=== PATIENT | female | born 1980 ===

== ENCOUNTER 2019-03-13 18:35 | Inpatient (IN) | payer MEDICAID ==
[2019-03-13 18:38] VITALS: BMI 24.5
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
[2019-03-13] MEDS ORDERED: Iohexol 350 MG/100 ML VIAL ONE (18:47)
[2019-03-13 18:57] LABS: BASO # 0.03 K/mm3 (0.0-2.0); BASO % 0.2 % (0.0-3.0); EOS % 0.1 % (1.5-5.0); HEMOGLOBIN 14.2 g/dL (12.0-16.0); LYMPH # 2.2 (1.2-3.4); LYMPH % 17.9 % (22.0-35.0); MEAN CELL VOLUME 84.7 fl (80.0-105.0); MEAN CORPUSCULAR HEMOGLOBIN 28.6 pg (25.0-35.0); MEAN CORPUSCULAR HGB CONC 33.8 g/dl (31.0-37.0); MEAN PLATELET VOLUME 11.5 fl (7.0-11.0); MONO # 0.5 (0.1-0.6); MONO % 3.8 % (1.0-6.0); RBC 4.96 10^6/uL (3.5-6.1); RED CELL DISTRIBUTION WIDTH 12.5 % (11.5-14.5); WHITE BLOOD COUNT 12.4 10^3/uL (4.5-11.0)
[2019-03-13 19:06] LABS: ALB/GLOB RATIO 1.3 (1.1-1.8); ALBUMIN 4.9 g/dL (3.0-4.8); ALT/SGPT 18 U/L (7-56); AST/SGOT 36 U/L (14-36); BLOOD UREA NITROGEN 11 mg/dL (7-21); CALCIUM 9.9 mg/dL (8.4-10.5); GFR NON-AFRICAN AMERICAN > 60; HDL CHOLESTEROL 55 mg/dL (29-60); INR 1.04; PARTIAL THROMBOPLASTIN TIME 22.8 Seconds (26.9-38.3); PROTHROMBIN TIME 11.5 SECONDS (9.4-12.5)
[2019-03-13 19:17] LABS: LDL CHOLESTEROL 152 mg/dL (0-129)
[2019-03-13 19:20] LABS: TROPONIN I < 0.01 ng/mL
[2019-03-13] MEDS ORDERED: Magnesium Sulfate 2 GM in Sodium Chloride 0.9% 100 ML IVPB ONE (19:33)
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
[2019-03-13] MEDS ORDERED: Magnesium Sulfate 2 GM in 50 ml Water IVPB ONE (19:45)
[2019-03-13] MEDS: Sodium Chloride 0.9% 1,000 ML IV SCH (20:06)
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
[2019-03-13 22:42] LABS: FREE T4 1.01 ng/dL (0.78-2.19)
[2019-03-13 22:54] LABS: INR 1.04; PROTHROMBIN TIME 11.5 SECONDS (9.4-12.5)
[2019-03-14] MEDS: Sodium Chloride 0.9% 1,000 ML IV SCH (04:00)
[2019-03-14 04:30] VITALS: RESP 20
[2019-03-14 06:20] VITALS: O2SAT 97
[2019-03-14 06:26] LABS: HEMOGLOBIN 12.8 g/dL (12.0-16.0); LYMPH # 0.7 (1.2-3.4); MEAN CELL VOLUME 84.4 fl (80.0-105.0); MEAN CORPUSCULAR HEMOGLOBIN 28.2 pg (25.0-35.0); MEAN CORPUSCULAR HGB CONC 33.4 g/dl (31.0-37.0); MEAN PLATELET VOLUME 11.4 fl (7.0-11.0); MONO % 0.3 % (1.0-6.0); PLATELET COUNT 240 10^3/uL (120.0-450.0); RBC 4.54 10^6/uL (3.5-6.1); RED CELL DISTRIBUTION WIDTH 12.4 % (11.5-14.5); WHITE BLOOD COUNT 10.6 10^3/uL (4.5-11.0)
[2019-03-14 06:54] LABS: TROPONIN I < 0.01 ng/mL
[2019-03-14 06:56] LABS: BAND 1 % (0-2); LYMPHOCYTE 5 % (22.0-35.0); NEUTROPHIL 94 % (50.0-70.0); PLATELET ESTIMATE NORMAL (NORMAL)
[2019-03-14 07:11] LABS: ALB/GLOB RATIO 1.2 (1.1-1.8); ALBUMIN 3.9 g/dL (3.0-4.8); ALT/SGPT 15 U/L (7-56); AST/SGOT 25 U/L (14-36); BLOOD UREA NITROGEN 14 mg/dL (7-21); CALCIUM 9.1 mg/dL (8.4-10.5); GFR NON-AFRICAN AMERICAN > 60
--- NOTE | 2019-03-14 08:01 | RAD ---
Date of service: 03/13/2019 HISTORY: Code Stroke COMPARISON: 05/09/2014 TECHNIQUE: 1 view obtained. FINDINGS: LUNGS: No active pulmonary disease. PLEURA: No significant pleural effusion identified, no pneumothorax apparent. CARDIOVASCULAR: No aortic atherosclerotic calcification present. Normal cardiac size. No pulmonary vascular congestion. OSSEOUS STRUCTURES: No significant abnormalities. VISUALIZED UPPER ABDOMEN: Normal. OTHER FINDINGS: None. IMPRESSION: No active disease.
--- NOTE | 2019-03-14 08:17 | CT ---
Date of service: 03/13/2019 PROCEDURE: CT HEAD WITHOUT CONTRAST. HISTORY: Code Stroke COMPARISON: 05/05/2013. TECHNIQUE: Axial computed tomography images were obtained through the head/brain without intravenous contrast. Radiation dose: Total exam DLP = 876.59 mGy-cm. This CT exam was performed using one or more of the following dose reduction techniques: Automated exposure control, adjustment of the mA and/or kV according to patient size, and/or use of iterative reconstruction technique. FINDINGS: HEMORRHAGE: No intracranial hemorrhage. BRAIN: Saldivar-white matter differentiation is preserved. There is no mass, mass effect or abnormal extra-axial fluid collection. There is no territorial infarction. The midline sagittal structures are normal. VENTRICLES: The ventricles are normal in size, shape and configuration. CALVARIUM: There is no calvarial fracture or extracranial soft tissue swelling. PARANASAL SINUSES: Predominantly clear. MASTOID AIR CELLS: Predominantly clear. OTHER FINDINGS: None. IMPRESSION: No acute intracranial abnormality. If there is a persistent focal neurologic deficit and an ongoing clinical concern for acute infarction, an MRI of the brain without intravenous contrast would be a more sensitive modality for evaluation of hyperacute/acute ischemic infarction. A preliminary report was provided by [employer].
--- NOTE | 2019-03-14 08:40 | CT ---
Date of service: 03/13/2019 PROCEDURE: CTA HEAD AND NECK WITH CONTRAST HISTORY: left sided weakness COMPARISON: None available. TECHNIQUE: Initial noncontrast head CT was performed. Subsequently, CT angiogram of the head and neck were performed after the intravenous administration of 80 mL of Omnipaque 350. Contiguous 1.5mm thick images were obtained in the axial plane of the neck. 2-D coronal and sagittal MPR images were obtained. Imaging postprocessing was performed with 3-D images also obtained. A delayed contrast head CT was also obtained. This CT exam was performed using one or more of the following dose reduction techniques: Automated exposure control, adjustment of the mA and/or kV according to patient size, and/or use of iterative reconstruction technique. Contrast dose: 100 mL Omnipaque 350 Radiation dose: Total exam DLP = 442.89 mGy-cm. FINDINGS: HEAD: Right: The intracranial internal carotid artery, and anterior and middle cerebral arteries are widely patent. Left: The intracranial internal carotid artery, and anterior and middle cerebral arteries are widely patent. Posterior circulation: The visualized intracranial vertebral arteries, basilar artery and posterior cerebral arteries are widely patent. There is no endoluminal filling defect to suggest thrombus. There is no intracranial saccular aneurysm. NECK: There is a three vessel aortic arch. There is no stenosis at the origins of the great vessels at the level of the aortic arch. No atherosclerotic calcification or mural plaque present. Right Carotid: On the right, the common carotid, internal carotid and external carotid arteries are widely patent. There is no hemodynamically significant stenosis in the internal carotid artery by NASCET criteria. Left Carotid: On the left, the common carotid, internal carotid and external carotid arteries are widely patent. There is no hemodynamically significant stenosis in the internal carotid artery by NASCET criteria. The vertebral arteries are widely patent. The left vertebral artery is hypoplastic, an anatomic variant. The visualized soft tissues of the neck are normal. The visualized brain and cervical spine are within normal limits. The lung apices are clear. IMPRESSION: 1. No evidence of endoluminal thrombus,occlusion or definite significant stenosis in the intracranial arteries. 2. No evidence of hemodynamically significant stenosis in the internal carotid arteries. 3. Patent bilateral vertebral arteries. A preliminary report was provided by [employer].
[2019-03-14] MEDS ORDERED: Enoxaparin 40 mg Syringe SC SCH (10:00)
--- NOTE | 2019-03-14 10:21 | CARD ---
APPROVED REPORT Date of service: 03/13/2019 EKG Measurement Heart [id number] <Conclusion> Sinus tachycardia Otherwise normal ECG
[2019-03-14 12:34] LABS: FOLATE > 20.0 ng/mL
--- NOTE | 2019-03-14 13:13 | CP.PCM.PN ---
Subjective - Date & Time of Evaluation Date of Evaluation: 03/14/19 Time of Evaluation: 13:12 - Subjective Subjective: Neurology Progress Note: Ms. Sydnee Carvalho was seen and examined today at bedside after discussion of the results of her studies. She was improved compared with yesterday. Objective - Vital Signs/Intake and Output Vital Signs (last 24 hours): Temp Pulse Resp BP Pulse Ox 98.8 F 97 H 20 110/73 97 03/14/19 12:00 03/14/19 12:00 03/14/19 12:00 03/14/19 12:00 03/14/19 06:00 Intake and Output: 03/14/19 03/14/19 06:59 18:59 Intake Total 1140 Balance 1140 - Medications Medications: Current Medications Aspirin (Ecotrin) 81 mg PO 0800 [facility]O Enoxaparin Sodium (Lovenox) 40 mg SC DAILY [facility]; Protocol Last Admin: 03/14/19 09:28 Dose: 40 mg Famotidine (Pepcid) 20 mg IVP DAILY [facility] Last Admin: 03/14/19 09:28 Dose: 20 mg Sodium Chloride (Sodium Chloride 0.9%) 1,000 mls @ 100 mls/hr IV .Q10H CHRISTIANO Last Admin: 03/14/19 04:00 Dose: 100 mls/hr - Labs Labs: 03/14/19 06:00 03/14/19 06:00 PT 11.5 SECONDS (9.4-12.5) 03/13/19 22:41 INR 1.04 03/13/19 22:41 APTT 22.8 Seconds (26.9-38.3) L 03/13/19 18:53 - Constitutional Appears: Well - Head Exam Head Exam: ATRAUMATIC, NORMAL INSPECTION, NORMOCEPHALIC - Eye Exam Eye Exam: EOMI, Normal appearance, PERRL Pupil Exam: NORMAL ACCOMODATION, PERRL - ENT Exam ENT Exam: Mucous Membranes Moist, Normal Exam - Neck Exam Neck Exam: Full ROM, Normal Inspection. absent: Lymphadenopathy - Respiratory Exam Respiratory Exam: Clear to Ausculation Bilateral, NORMAL BREATHING PATTERN - Cardiovascular Exam Cardiovascular Exam: REGULAR RHYTHM, +S1, +S2. absent: Murmur - GI/Abdominal Exam GI & Abdominal Exam: Soft, Normal Bowel Sounds. absent: Tenderness - Extremities Exam Extremities Exam: Full ROM, Normal Capillary Refill, Normal Inspection. absent: Joint Swelling, Pedal Edema - Back Exam Back Exam: NORMAL INSPECTION - Neurological Exam Neurological Exam: Alert, Awake, CN II-XII Intact, Normal Gait, Oriented x3 Neuro motor strength exam: Left Upper Extremity: 5, Right Upper Extremity: 5, Left Lower Extremity: 5, Right Lower Extremity: 5 Additional comments: NIHSS is 0 - Psychiatric Exam Psychiatric exam: Normal Affect, Normal Mood - Skin Skin Exam: Dry, Intact, Normal Color, Warm
[2019-03-14] MEDS ORDERED: Cholecalciferol 1,000 INTLU TAB PO SCH (14:00)
--- NOTE | 2019-03-14 14:44 | CP.PCM.PCO ---
Physician Communication Note - Physician Communication Note Physician Communication Note: Swallow eval done at bedside with Dr Mccormack. Passed, started on diet.
--- NOTE | 2019-03-14 16:34 | MRI ---
Date of service: 03/14/2019 PROCEDURE: MRI BRAIN WITHOUT CONTRAST HISTORY: Headache and hemiplegia COMPARISON: CT head without contrast from 03/13/2019. TECHNIQUE: Multiplanar, multisequence MR images of the brain were obtained without intravenous contrast enhancement. FINDINGS: HEMORRHAGE: None DWI: No evidence of an acute or early subacute infarction. BRAIN PARENCHYMA: Saldivar-white matter differentiation is preserved. There is no mass, mass effect or abnormal extra-axial fluid collection. There is no territorial infarction. There is a 7 x 10 mm T1 and T2 hyperintense lesion with layering T2 hypointense and T1 hyperintense signal in the midline pituitary gland. Posterior pituitary bright signal is preserved. VENTRICLES: The ventricles are normal in size, shape and configuration. CRANIUM: There is normal bone marrow signal pattern. ORBITS: Grossly unremarkable. PARANASAL SINUSES/MASTOIDS: Clear VASCULAR SYSTEM: There are normal signal voids in the larger intracranial arteries. OTHER FINDINGS: None. IMPRESSION: 1. No acute intracranial abnormality. 2. 7 x 10 mm lesion in the midline pituitary gland could represent a Rathke's cleft cyst or hemorrhage in pituitary microadenoma. Dedicated MRI the brain with pituitary protocol without and with intravenous contrast would be helpful for further evaluation.
--- NOTE | 2019-03-14 16:36 | MRI ---
Date of service: 03/14/2019 PROCEDURE: Magnetic Resonance Angiography Brain HISTORY: headache and hemiplegia COMPARISON: None available. TECHNIQUE: 3D time of flight MR angiography of the intracranial arteries was performed. Rotating maximum intensity projection images were generated. FINDINGS: INTERNAL CAROTID ARTERIES: Normal flow related signal. The skull base, petrous, cavernous and supraclinoid segments are bilaterally widely patient. ANTERIOR CEREBRAL ARTERIES: Normal flow related signal. A1 and A2 segments are widely patent. Smaller distal branches unremarkable, as visualized. MIDDLE CEREBRAL ARTERIES: Normal flow related signal. M1 and M2 segments are widely patent. Perisylvian branches grossly symmetric. POSTERIOR CIRCULATION: Basilar Artery: Normal flow related signal. Normal in caliber and widely patent. Distal Vertebral Arteries: Normal flow related signal. Widely patent. Posterior Cerebral Arteries: Normal flow related signal. Widely patent. Posterior Inferior Cerebellar Arteries: Normal flow related signal. Widely patent. ANEURYSM/ VASCULAR MALFORMATIONS: None. OTHER FINDINGS: None. IMPRESSION: Normal noncontrast MR angiography of the brain.
[2019-03-14 17:27] VITALS: BP 111/71; TEMP 98.3
[2019-03-14 18:08] VITALS: PULSE 106
--- NOTE | 2019-03-14 18:26 | CARD ---
APPROVED REPORT Date of service: 03/14/2019 EKG Measurement Heart [id number] <Conclusion> Normal sinus rhythm Normal ECG
--- NOTE | 2019-03-14 19:34 | CARD ---
APPROVED REPORT Date of service: 03/14/2019 EXAM: Two-dimensional and M-mode echocardiogram with Doppler and color Doppler. INDICATION R/O PFO/BUBBLE STUDY 2D DIMENSIONS Left Atrium (2D)3.9 (1.6-4.0cm)IVSd0.8 (0.7-1.1cm) LVDd4.0 (3.9-5.9cm)PWd0.8 (0.7-1.1cm) LVDs2.6 (2.5-4.0cm)FS (%) 36.1 % LVEF (%)66.4 (>50%) M-Mode DIMENSIONS Aortic Root2.70 (2.2-3.7cm)Aortic Cusp Exc.1.70 (1.5-2.0cm) Aortic Valve AoV Peak Pawkodfo127.0cm/Kimberley Peak GR.10mmHg Mitral Valve MV E Toobmfua66.2cm/sMV A Dhhbeibd74.5cm/sE/A ratio1.1 TDI E/Lateral E'0.0E/Medial E'0.0 Pulmonary Valve PV Peak Wrhshyns46.5cm/sPV Peak Grad.3mmHg Tricuspid Valve TR Peak [id number]/sRAP [id number] Peak Gr.22mmHg [id number] LEFT VENTRICLE The left ventricle is normal size. There is normal left ventricular wall thickness. The left ventricular function is normal. The left ventricular ejection fraction is within the normal range. There is normal LV segmental wall motion. The left ventricular diastolic function is normal. RIGHT VENTRICLE The right ventricle is normal size. There is normal right ventricular wall thickness. The right ventricular systolic function is normal. ATRIA The left atrium size is normal. The right atrium size is normal. The interatrial septum is intact AORTIC VALVE The aortic valve is normal in structure. No aortic regurgitation is present. There is no aortic valvular stenosis. MITRAL VALVE The mitral valve is normal in structure. Mitral regurgitation is trace. TRICUSPID VALVE The tricuspid valve is normal in structure. There is trace tricuspid regurgitation. PULMONIC VALVE The pulmonary valve is normal in structure. There is no pulmonic valvular regurgitation. GREAT VESSELS The aortic root is normal in size. The IVC is normal in size and collapses >50% with inspiration. <Conclusion> The left ventricle is normal size. There is normal left ventricular wall thickness. The left ventricular function is normal. The left ventricular ejection fraction is within the normal range. There is normal LV segmental wall motion. The left ventricular diastolic function is normal. Mitral regurgitation is trace. There is trace tricuspid regurgitation. The interatrial septum is intact
--- NOTE | 2019-03-15 07:00 | CP.PCM.DIS ---
<Antwon Gillette - Last Filed: 03/15/19 07:00> Provider - Provider Date of Admission: 03/13/19 19:31 Attending physician: Latrice Mccormack MD Primary care physician: Cherelle Gordon DO Consults: 03/13/19 18:40 Stroke Team Consult Stat Comment: left sided def Consulting Provider: Neurohospitalist Consulting Physician: NEUROHOSP Neurohospitalist for Consult: Alberto Shaffer Neurohospitalist for Consult: Kathy De Dios Reason for Consult: r/o cva 03/13/19 23:46 Case Management Referral Routine Comment: Physician Instructions: Reason For Exam: ?cva Reason for Referral: Visual Display Associate Eval Time Spent in preparation of Discharge (in minutes): 40 Diagnosis - Discharge Diagnosis (1) Numbness and tingling in left arm Status: Resolved (2) Dysarthria Status: Resolved (3) Dysphagia Status: Resolved Hospital Course - Lab Results Lab Results: Most Recent Lab Values WBC 10.6 10^3/uL (4.5-11.0) 03/14/19 06:00 RBC 4.54 10^6/uL (3.5-6.1) 03/14/19 06:00 Hgb 12.8 g/dL (12.0-16.0) 03/14/19 06:00 Hct 38.3 % (36.0-48.0) 03/14/19 06:00 MCV 84.4 fl (80.0-105.0) 03/14/19 06:00 MCH 28.2 pg (25.0-35.0) 03/14/19 06:00 MCHC 33.4 g/dl (31.0-37.0) 03/14/19 06:00 RDW 12.4 % (11.5-14.5) 03/14/19 06:00 Plt Count 240 10^3/uL (120.0-450.0) 03/14/19 06:00 MPV 11.4 fl (7.0-11.0) H 03/14/19 06:00 Neut % (Auto) 92.7 % (50.0-68.0) H 03/14/19 06:00 Lymph % (Auto) 7.0 % (22.0-35.0) L 03/14/19 06:00 Mckean % (Auto) 0.3 % (1.0-6.0) L 03/14/19 06:00 Eos % (Auto) 0.0 % (1.5-5.0) L 03/14/19 06:00 Baso % (Auto) 0.0 % (0.0-3.0) 03/14/19 06:00 Lymph # (Auto) 0.7 (1.2-3.4) L 03/14/19 06:00 Mckean # (Auto) 0.0 (0.1-0.6) L 03/14/19 06:00 Eos # (Auto) 0.0 (0.0-0.7) 03/14/19 06:00 Baso # (Auto) 0.00 K/mm3 (0.0-2.0) 03/14/19 06:00 Absolute Neuts (auto) 9.80 (1.4-6.5) H 03/14/19 06:00 Neutrophils % (Manual) 94 % (50.0-70.0) H 03/14/19 06:00 Band Neutrophils % 1 % (0-2) 03/14/19 06:00 Lymphocytes % (Manual) 5 % (22.0-35.0) L 03/14/19 06:00 Monocytes % (Manual) TEST NOT PERFORMED 03/14/19 06:00 Platelet Evaluation Normal (NORMAL) 03/14/19 06:00 PT 11.5 SECONDS (9.4-12.5) 03/13/19 22:41 INR 1.04 03/13/19 22:41 APTT 22.8 Seconds (26.9-38.3) L 03/13/19 18:53 Fibrinogen 272 mg/dl (200-400) 03/13/19 22:41 Sodium 137 mmol/L (132-148) 03/14/19 06:00 Potassium 4.5 mmol/L (3.6-5.0) 03/14/19 06:00 Chloride 109 mmol/L (98-107) H 03/14/19 06:00 Carbon Dioxide 21 mmol/L (21-33) 03/14/19 06:00 Anion Gap 12 (10-20) 03/14/19 06:00 BUN 14 mg/dL (7-21) 03/14/19 06:00 Creatinine 0.6 mg/dl (0.7-1.2) L 03/14/19 06:00 Est GFR ( Amer) > 60 03/14/19 06:00 Est GFR (Non-Af Amer) > 60 03/14/19 06:00 POC Glucose (mg/dL) 146 mg/dL (65-110) H 03/14/19 16:26 Random Glucose 121 mg/dL (70-110) H 03/14/19 06:00 Hemoglobin A1c 5.4 % (4.2-6.5) 03/13/19 18:53 Calcium 9.1 mg/dL (8.4-10.5) 03/14/19 06:00 Phosphorus 4.2 mg/dL (2.5-4.5) 03/14/19 06:00 Magnesium 1.9 mg/dL (1.7-2.2) 03/13/19 18:53 Total Bilirubin 0.5 mg/dL (0.2-1.3) 03/14/19 06:00 AST 25 U/L (14-36) 03/14/19 06:00 ALT 15 U/L (7-56) 03/14/19 06:00 Alkaline Phosphatase 59 U/L (38-126) 03/14/19 06:00 Troponin I < 0.01 ng/mL 03/14/19 06:00 Total Protein 7.2 g/dL (5.8-8.3) 03/14/19 06:00 Albumin 3.9 g/dL (3.0-4.8) 03/14/19 06:00 Globulin 3.3 gm/dL 03/14/19 06:00 Albumin/Globulin Ratio 1.2 (1.1-1.8) 03/14/19 06:00 Triglycerides 211 mg/dL (35-160) H 03/13/19 18:53 Cholesterol 245 mg/dL (130-200) H 03/13/19 18:53 LDL Cholesterol Direct 152 mg/dL (0-129) H 03/13/19 18:53 HDL Cholesterol 55 mg/dL (29-60) 03/13/19 18:53 Vitamin B12 424 pg/mL (239-931) 03/14/19 06:00 25-OH Vitamin D Total 30 ng/mL (30-100) 03/14/19 06:00 Folate > 20.0 ng/mL 03/14/19 06:00 Free T4 1.01 ng/dL (0.78-2.19) 03/13/19 18:53 TSH 3rd Generation 1.05 mIU/mL (0.46-4.68) 03/13/19 18:53 Blood Type B POSITIVE 03/13/19 18:53 Blood Type Confirm B POSITIVE 03/13/19 19:17 Antibody Screen Negative 03/13/19 18:53 BBK History Checked No verified bt 03/13/19 18:53 - Hospital Course Hospital Course: Antwon Gillette DO, PGY-1 Hospitalist Discharge Summary for Dr. Mccormack Prior to admission: Patient is a 38 year old female with PMH of intermittent palpitations (had previously taken atenolol as needed) presented to ED with a complaint of JOHNSON with associated L sided numbness, tingling, dysarthria, and dysphagia that started the morning prior to presentation. She also reported feeling palpitations at the time of onset, for which she took one of her old atenolol prescription pills. She presented to her PMD, Dr. Gordon, who recommend she present to ED for further evaluation. Code stroke was called in ED. Initial head CT was negative for concerning findings. Patient was out of the window of 4.5 hrs, so no tPA was given. Hospitalization course: By our examination the following morning, patient's symptoms had largely resolved. She no longer had dysarthria or dysphagia. Although she failed initial nursing swallow evaluation, she was able to swallow without difficulty on examination, and passed full swallow evaluation by speech language pathologist. She had no residual weakness or dysarthria. Additional w/u was completed with MRA head and neck and MRI brain, both of which were without concerning findings. She was instructed to f/u with neurologist outpatient to get an MRI brain with contrast study as below. She was instructed to f/u with her PMD, Dr. Rodriguez, for echocardiogram results. Discharge plan was discussed with patient in detail. All questions were answered. Patient seen, examined with, and discharge plan discussed with my attending, Dr. Easton Gillette DO IM Resident PGY-1 Discharge Exam - Head Exam Head Exam: ATRAUMATIC, NORMAL INSPECTION, NORMOCEPHALIC Additional comments: Patient seen and examined yesterday morning and then again prior to discharge in the evening. Physical exam findings as below: - Eye Exam Eye Exam: EOMI, PERRL - ENT Exam ENT Exam: Mucous Membranes Moist - Neck Exam Neck exam: Full Rom, Normal Inspection - Respiratory Exam Respiratory Exam: Clear to PA & Lateral, NORMAL BREATHING PATTERN, UNREMARKABLE. absent: Rales, Rhonchi, Wheezes - Cardiovascular Exam Cardiovascular Exam: REGULAR RHYTHM, RRR, +S1, +S2. absent: Diastolic murmur, Gallop, Rubs, Systolic Murmur - GI/Abdominal Exam GI & Abdominal Exam: Normal Bowel Sounds, Soft, Unremarkable. absent: Tenderness - Extremities Exam Extremities exam: full ROM, normal inspection - Back Exam Back exam: NORMAL INSPECTION - Neurological Exam Neurological exam: Alert, Oriented x3 - Psychiatric Exam Psychiatric exam: Normal Affect, Normal Mood - Skin Skin Exam: Dry, Intact, Warm Discharge Plan - Discharge Medications Prescriptions: Aspirin [Ecotrin] 81 mg PO 0800 #30 tabec Cholecalciferol [Vitamin D 1000 IU] 2,000 intlu PO DAILY #30 tab - Follow Up Plan Condition: CRITICAL Disposition: HOME/ ROUTINE Instructions: Stroke, High Blood Pressure in Adults, Risk Factors for Stroke Additional Instructions: Please follow up with your primary medical doctor, Dr. Gordon, within 3-5 days of discharge. Please follow up with the neurologist, Dr. Shaffer, within 1 week of discharge. Please continue to take aspirin 81 mg daily. Please also start taking vitamin D 2000 IU daily. It is available over the coun ter. Obtain MRI brain with contrast outpatient and follow up with your neurologist. Please follow up with your primary care doctor for the echocardiogram results. If you experience new onset numbness with weakness, slurred speech, or other concerning symptoms, please present to nearest emergency department. Referrals: Alberto Shaffer MD [Staff Provider] - Cherelle Gordon DO [Primary Care Provider] - <Latrice Mccormack - Last Filed: 03/15/19 15:04> Provider - Provider Date of Admission: 03/13/19 19:31 Attending physician: Latrice Mccormack MD Primary care physician: Cherelle Gordon DO Consults: 03/13/19 18:40 Stroke Team Consult Stat Comment: left sided def Consulting Provider: Neurohospitalist Consulting Physician: NEUROHOSP Neurohospitalist for Consult: Alberto Shaffer Neurohospitalist for Consult: Kathy De Dios Reason for Consult: r/o cva 03/13/19 23:46 Case Management Referral Routine Comment: Physician Instructions: Reason For Exam: ?cva Reason for Referral: Visual Display Associate [place] Hospital Course - Lab Results Lab Results: Most Recent Lab Values WBC 10.6 10^3/uL (4.5-11.0) 03/14/19 06:00 RBC 4.54 10^6/uL (3.5-6.1) 03/14/19 06:00 Hgb 12.8 g/dL (12.0-16.0) 03/14/19 06:00 Hct 38.3 % (36.0-48.0) 03/14/19 06:00 MCV 84.4 fl (80.0-105.0) 03/14/19 06:00 MCH 28.2 pg (25.0-35.0) 03/14/19 06:00 MCHC 33.4 g/dl (31.0-37.0) 03/14/19 06:00 RDW 12.4 % (11.5-14.5) 03/14/19 06:00 Plt Count 240 10^3/uL (120.0-450.0) 03/14/19 06:00 MPV 11.4 fl (7.0-11.0) H 03/14/19 06:00 Neut % (Auto) 92.7 % (50.0-68.0) H 03/14/19 06:00 Lymph % (Auto) 7.0 % (22.0-35.0) L 03/14/19 06:00 Mckean % (Auto) 0.3 % (1.0-6.0) L 03/14/19 06:00 Eos % (Auto) 0.0 % (1.5-5.0) L 03/14/19 06:00 Baso % (Auto) 0.0 % (0.0-3.0) 03/14/19 06:00 Lymph # (Auto) 0.7 (1.2-3.4) L 03/14/19 06:00 Mckean # (Auto) 0.0 (0.1-0.6) L 03/14/19 06:00 Eos # (Auto) 0.0 (0.0-0.7) 03/14/19 06:00 Baso # (Auto) 0.00 K/mm3 (0.0-2.0) 03/14/19 06:00 Absolute Neuts (auto) 9.80 (1.4-6.5) H 03/14/19 06:00 Neutrophils % (Manual) 94 % (50.0-70.0) H 03/14/19 06:00 Band Neutrophils % 1 % (0-2) 03/14/19 06:00 Lymphocytes % (Manual) 5 % (22.0-35.0) L 03/14/19 06:00 Monocytes % (Manual) TEST NOT PERFORMED 03/14/19 06:00 Platelet Evaluation Normal (NORMAL) 03/14/19 06:00 PT 11.5 SECONDS (9.4-12.5) 03/13/19 22:41 INR 1.04 03/13/19 22:41 APTT 22.8 Seconds (26.9-38.3) L 03/13/19 18:53 Fibrinogen 272 mg/dl (200-400) 03/13/19 22:41 Sodium 137 mmol/L (132-148) 03/14/19 06:00 Potassium 4.5 mmol/L (3.6-5.0) 03/14/19 06:00 Chloride 109 mmol/L (98-107) H 03/14/19 06:00 Carbon Dioxide 21 mmol/L (21-33) 03/14/19 06:00 Anion Gap 12 (10-20) 03/14/19 06:00 BUN 14 mg/dL (7-21) 03/14/19 06:00 Creatinine 0.6 mg/dl (0.7-1.2) L 03/14/19 06:00 Est GFR ( Amer) > 60 03/14/19 06:00 Est GFR (Non-Af Amer) > 60 03/14/19 06:00 POC Glucose (mg/dL) 146 mg/dL (65-110) H 03/14/19 16:26 Random Glucose 121 mg/dL (70-110) H 03/14/19 06:00 Hemoglobin A1c 5.4 % (4.2-6.5) 03/13/19 18:53 Calcium 9.1 mg/dL (8.4-10.5) 03/14/19 06:00 Phosphorus 4.2 mg/dL (2.5-4.5) 03/14/19 06:00 Magnesium 1.9 mg/dL (1.7-2.2) 03/13/19 18:53 Total Bilirubin 0.5 mg/dL (0.2-1.3) 03/14/19 06:00 AST 25 U/L (14-36) 03/14/19 06:00 ALT 15 U/L (7-56) 03/14/19 06:00 Alkaline Phosphatase 59 U/L (38-126) 03/14/19 06:00 Troponin I < 0.01 ng/mL 03/14/19 06:00 Total Protein 7.2 g/dL (5.8-8.3) 03/14/19 06:00 Albumin 3.9 g/dL (3.0-4.8) 03/14/19 06:00 Globulin 3.3 gm/dL 03/14/19 06:00 Albumin/Globulin Ratio 1.2 (1.1-1.8) 03/14/19 06:00 Triglycerides 211 mg/dL (35-160) H 03/13/19 18:53 Cholesterol 245 mg/dL (130-200) H 03/13/19 18:53 LDL Cholesterol Direct 152 mg/dL (0-129) H 03/13/19 18:53 HDL Cholesterol 55 mg/dL (29-60) 03/13/19 18:53 Vitamin B12 424 pg/mL (239-931) 03/14/19 06:00 25-OH Vitamin D Total 30 ng/mL (30-100) 03/14/19 06:00 Folate > 20.0 ng/mL 03/14/19 06:00 Free T4 1.01 ng/dL (0.78-2.19) 03/13/19 18:53 TSH 3rd Generation 1.05 mIU/mL (0.46-4.68) 03/13/19 18:53 Blood Type B POSITIVE 03/13/19 18:53 Blood Type Confirm B POSITIVE 03/13/19 19:17 Antibody Screen Negative 03/13/19 18:53 BBK History Checked No verified bt 03/13/19 18:53 Attending/Attestation - Attestation I have personally seen and examined this patient.: Yes I have fully participated in the care of the patient.: Yes I have reviewed all pertinent clinical information, including history, physical exam and plan: Yes Notes (Text): 03/15/19 14:25 Attending note; Patient seen and examined with resident. She is alert and awake. Patient son by the bedside. Denies any chest pain, shortness of breath. Denies any numbness or weakness Currently denies any dysphagia or dysarthria. No facial weakness noted. Patient is a 38 year old female with PMH of intermittent palpitations, migraine is admitted with headache and Left sided numbness, tingling, dysarthria, and dysphagia. 1. Left-sided numbness and tingling; patient had some dysarthria and dysphagia in ER. Code stroke called. CT head is negative. 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 outpatient MRI with contrast recommended. MRA is negative. Possible anxiety versus complicated migraine suspected. case discussed with neurology in detail. 2. Echocardiogram with bubble study is negative for PFO. Showed normal ejection fraction. 3. Bedside swallow evaluation done this morning. Patient is started on regular diet. 4. PT evaluation appreciated. Ambulating without difficulty. discharge home today. follow up with neurology as outpatient. 03/15/19 15:04
== END 2019-03-14 21:19 | disposition home or self-care (01) | DRG 891 ==
LOC: ED 18:35 → ERH 19:31 → 2RNO 21:20
PROVIDERS: ADMIT Internal Medicine; ATTEND Internal Medicine
DX: G43.109 Migraine with aura, not intractable, without status migrainosus (principal); I10 Essential (primary) hypertension; E11.9 Type 2 diabetes mellitus without complications; E78.5 Hyperlipidemia, unspecified; K21.9 Gastro-esophageal reflux disease without esophagitis; R13.10 Dysphagia, unspecified; R20.0 Anesthesia of skin; R53.1 Weakness; Z72.0 Tobacco use